=== PATIENT | female | born 1940 | race African-American/Black ===

== ENCOUNTER 2019-12-19 14:13 | Emergency (ER) | payer OTHER ==
[~2019-12-19] VITALS: Ht 157.5 cm; Wt 90.3 kg
[2019-12-19] MEDS ORDERED: LABETALOL 5MG/ML SYR 20 MG/4 ML SYRINGE IV ONE (14:30)
[2019-12-19] MEDS ORDERED: IOHEXOL-350 100 ML BOTTLE ONE (15:07)
[2019-12-19 15:15] LABS: BASOPHILS % 0.7 % (0.0-2.0); EOSINOPHILS % 0.2 % (0.0-5.0); HEMOGLOBIN. 10.4 g/dL (12.0-16.0); LYMPHOCYTES % 18.1 % (20.0-50.0); MEAN CORPUSCULAR HEMOGLOBIN 26.1 pg (28.0-32.0); MEAN CORPUSCULAR VOLUME 80.1 fL (81.0-99.0); MEAN PLATELET VOLUME 8.8 fl (7.4-10.4); MONOCYTES % 8.3 % (2.0-8.0); NEUTROPHILS % 72.7 % (40.0-76.0); PLATELET 226 x1000/uL (130-400); RED BLOOD CELL COUNT 3.99 mill/uL (4.2-5.4); RED CELL DISTRIBUTION WIDTH 15.6 % (11.6-14.6)
[2019-12-19 15:16] LABS: CHLORIDE 108 mEq/L (98-107)
[2019-12-19 15:22] LABS: PROTHROMBIN TIME 10.9 sec (9.6-11.0)
[2019-12-19 15:23] LABS: ETHANOL BLOOD < 10 mg/dL
[2019-12-19 15:25] LABS: LDL CHOLESTEROL 71 mg/dL (5-100)
[2019-12-19 15:27] LABS: CREATINE KINASE 148 IU/L (26-192)
[2019-12-19] MEDS ORDERED: ASPIRIN 325MG EC TABLET PO ONE (16:15)
[2019-12-19 18:23] VITALS: BP 190/86
== END 2019-12-19 18:52 | disposition short-term general hospital (02) ==
LOC: ER 14:22
DX: I63.9 Cerebral infarction, unspecified (principal); I16.0 Hypertensive urgency; N28.9 Disorder of kidney and ureter, unspecified; R53.1 Weakness
CPT/HCPCS: 36415; 70450; 70496; 70498; 71045; 80053; 80320; 82550; 83690; 83721; 83880; 84484; 85025; 85610; 93005; 96374; 99291; Q9967; G0480